=== PATIENT | female | born 1960 | race African-American/Black ===

== ENCOUNTER → 2017-12-18 | Outpatient (CLI) | payer OTHER ==
--- NOTE | 2017-12-18 13:43 | RADIOLOGY REPORT (SQ) ---
EXAM DESCRIPTION: MRI LT UPPER JOINT WITHOUT COMPLETED DATE/TIME: 12/18/2017 12:02 pm REASON FOR STUDY: L SHOULDER PAIN M25.512 PAIN IN LEFT SHOULDER COMPARISON: None. TECHNIQUE: Left shoulder images acquired and stored on PACS. Multiplanar imaging to include fat sens itive sequences such as T1, water sensitive sequences such as FST2/STIR, cartilage sensitive sequence s such as FSPD/gradient-echo sequences. LIMITATIONS: None. FINDINGS: BONE MARROW AND CORTEX: Mild cystic changes in the anterior humeral head along the base of the lesser tuberosity. This may reflect impingement. Marrow signal is otherwise normal. JOINT OR BURSAL EFFUSION: No significant joint or bursal fluid. No suggestion of loose bodies. GLENO-HUMERAL ARTICULATION: No subluxation, dislocation or suggestion of focal chondral lesion. No b ulky osteophytes. ACROMION AND AC JOINT: Mild degenerative overgrowth in the AC joint. There is pronounced anterolat eral down slope with spurring and associated narrowing of the subacromial space. ROTATOR CUFF AND INTERVAL: Focal tear along supraspinatus insertion. This looks like near full-thick ness perforation with mild underlying reactive bone change. No measurable gap in the cuff otherwise. Slight adjacent articular surface fraying and minimal partial tear. No cuff muscle atrophy. Subsc apularis appears to be intact. LABRUM AND BICEPS LABRAL COMPLEX: Mildly heterogeneous superior labrum including the anchor. This is suspected to be artifact. Long head biceps tendon intact. REMAINDER OF LABRUM AND IGHL : Generally intact without evidence of tear, abnormal thickening or para labral cyst. PERIARTICULAR AND ADJACENT SOFT TISSUES: No masses or abnormal nodes. OTHER: No other significant finding. IMPRESSION: 1. Cuff disease as above. There is downsloping acromial morphology with probable associ ated impingement, cuff tears as above. While there may be a component of near full-thickness perfora tion, a significant gap in the cuff is not otherwise demonstrated. TECHNICAL DOCUMENTATION: JOB ID: [id number] [employer]- All Rights Reserved Reading location - IP/workstation name: [email or web address]
== END ==
LOC: RAD 10:44
PROVIDERS: ATTEND Physician Assistant
DX: M25.512 Pain in left shoulder (principal)

== ENCOUNTER 2019-06-18 02:12 | Emergency (ER) | payer OTHER ==
[2019-06-18] MEDS ORDERED: LIDOCAINE 2% INJ-PF (20 MG/ML) 2 ML AMPUL INJ ONE (03:19)
[2019-06-18] MEDS ORDERED: IBUPROFEN 600 MG TABLET PO ONE (03:49)
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
[2019-06-18] MEDS ORDERED: CIPROFLOXACIN HCL/DEXAMETH OTIC DROP 7.5 ML AS ONE (04:45)
[2019-06-18 05:03] VITALS: BP 133/79
== END 2019-06-18 05:11 | disposition home or self-care (01) ==
LOC: ER 02:12
DX: T16.2XXA Foreign body in left ear, initial encounter (principal); X58.XXXA Exposure to other specified factors, initial encounter; H92.02 Otalgia, left ear; F17.200 Nicotine dependence, unspecified, uncomplicated; I10 Essential (primary) hypertension
CPT/HCPCS: 99282; J3490

== ENCOUNTER 2020-09-25 01:24 | Emergency (ER) | payer OTHER ==
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
[2020-09-25 05:11] VITALS: BP 116/79
== END 2020-09-25 05:25 | disposition home or self-care (01) ==
LOC: ER 01:24
DX: S10.91XA Abrasion of unspecified part of neck, initial encounter (principal); S40.212A Abrasion of left shoulder, initial encounter; H92.22 Otorrhagia, left ear; R41.3 Other amnesia; Y04.2XXA Assault by strike against or bumped into by another person, initial encounter; Y92.009 Unspecified place in unspecified non-institutional (private) residence as the place of occurrence of the external cause; F17.200 Nicotine dependence, unspecified, uncomplicated; I10 Essential (primary) hypertension; Z98.51 Tubal ligation status
CPT/HCPCS: 70450; 72125; 99284